=== PATIENT | male | born 1970 | race Caucasian/White ===

== ENCOUNTER 2016-08-29 09:23 | Emergency (ER) | payer OTHER ==
--- NOTE | 2016-08-29 16:11 | ER ---
ADMIT: 08/29/2016 RM/LOC: ER [facility] MR#: [id number] [address] [facility] [id number] [place], [place] [id number] DAVID PHILLIP Martha [address] [address] Emergency Room Report SEX: M AGE: 46 : 1970 DATE: 08/29/2016 ADDENDUM: A 46-year-old male coming in after stepping in a hole, having pain just anterior to his heel. X-ray of the foot is negative. This appears to be more of a sprain of his right foot. Ice, Motrin, wrap, his crutches continue and he should follow up. He is not improving towards the end of the week. CONDITION ON DISCHARGE: Fair. Abel Morejon MD/ lang JOB #: [id number] CC: Abel Morejon MD, Attending Physician Katrina Garcia MD, Family Physician
== END 2016-08-29 10:53 | disposition home or self-care (01) ==
LOC: ER 09:23
DX: S93.621A Sprain of tarsometatarsal ligament of right foot, initial encounter (principal); X50.1XXA Overexertion from prolonged static or awkward postures, initial encounter; Y92.69 Other specified industrial and construction area as the place of occurrence of the external cause; Y99.0 Civilian activity done for income or pay